=== PATIENT | female | born 1985 | race Hispanic/Latino ===

== ENCOUNTER 2018-03-05 09:12 | Outpatient (CLI) | payer BC ==
[2018-03-05 10:37] LABS: Hemoglobin 13.8 g/dL (12.0-16.0); Mean Corpuscular Hemoglobin 29.6 pg (27.0-31.0); Mean Corpuscular Volume 89.6 fL (78.0-98.0); Mean Platelet Volume 8.7 fL (7.4-10.4); Platelet Count 262 thou/uL (130-400); RBC Distribution Width 12.3 % (11.5-14.5); Red Blood Cell (RBC) Count 4.67 mill/uL (4.20-5.40); White Blood Cell (WBC) Count 7.1 thou/uL (4.8-10.8)
[2018-03-05 10:40] LABS: BHCG - Serum Negative (NEGATIVE); Pregs Control Background? CLEAR/WHITE (CLR/WHITE); Pregs Control Bar Appear? YES (CONTROL BAR)
[2018-03-05 10:44] LABS: PTT 34.8 SEC (22.9-36.1); Prothrombin Time 12.7 SEC (12.0-14.7)
[2018-03-05 10:46] LABS: Anion Gap 11 mmol/L (10-20); BUN (Urea Nitrogen) 10 mg/dL (7.0-18.7); Calc. Creatinine Clearance 0 mL/min (70-130); Calcium 9.1 mg/dL (7.8-10.44); Carbon Dioxide 27 mmol/L (22-29); Chloride 106 mmol/L (98-107); Estimated GFR-MDRD Greater than 90; Glucose 87 mg/dL (70-105); Potassium 3.8 mmol/L (3.5-5.1); Sodium 140 mmol/L (136-145)
== END 2018-03-05 09:13 | disposition home or self-care (01) ==
LOC: LABBT 09:12
PROVIDERS: ATTEND Surgery
DX: Z01.818 Encounter for other preprocedural examination (principal); M51.16 Intervertebral disc disorders with radiculopathy, lumbar region; M48.061 Spinal stenosis, lumbar region without neurogenic claudication
CPT/HCPCS: 80048; 84703; 85027; 85610; 85730; 93005; 93010

== ENCOUNTER 2018-03-08 05:55 | Day surgery (SDC) | payer BC ==
[2018-03-05 09:50] VITALS: BMI 35.5
[2018-03-08] MEDS ORDERED: Sodium Chloride 0.9% 10 ML ONE (06:31)
[2018-03-08] MEDS ORDERED: Thrombin 5000 UNITS/5 ML VIAL ONE (06:32)
[2018-03-08] MEDS ORDERED: Bacitracin Zinc Ointment 30 gm TUBE ONE (06:32)
[2018-03-08] MEDS ORDERED: CEFAZOLIN/Water 2 GM/20 ML SYRINGE ONE (06:59)
[2018-03-08] MEDS ORDERED: Midazolam HCl 2 mg/2 ml Vial ONE (06:59)
[2018-03-08] MEDS ORDERED: Fentanyl 100 MCG/2 ML VIAL ONE ×2 (07:21→10:26)
[2018-03-08] MEDS ORDERED: Promethazine HCl 25 MG/ML VIAL IM PRN ×2 (09:15→10:06)
[2018-03-08] MEDS ORDERED: HYDROmorphone 2 MG/ML VIAL SLOW IVP PRN (09:15)
[2018-03-08] MEDS ORDERED: Morphine Sulfate 2 MG/ML SYRINGE SLOW IVP PRN (09:15)
[2018-03-08] MEDS ORDERED: Promethazine HCl 25 MG/ML VIAL SLOW IVP PRN (09:15)
[2018-03-08] MEDS ORDERED: Meperidine HCl/PF 25 MG/ML VIAL SLOW IVP PRN (09:15)
[2018-03-08] MEDS ORDERED: Ondansetron HCl/PF 4 MG/2 ML Vial IVP PRN (09:15)
[2018-03-08] MEDS ORDERED: Milk Of Magnesia 30 ML UDCUP PO PRN (10:06)
[2018-03-08] MEDS ORDERED: Acetaminophen 325 MG TAB PO PRN (10:06)
[2018-03-08] MEDS ORDERED: Bisacodyl 10 MG SUPP PR PRN (10:06)
[2018-03-08] MEDS ORDERED: Mag-Al 1200 mg/1200 mg/30 ML UDCUP PO PRN (10:06)
[2018-03-08] MEDS ORDERED: Acetaminophen/Codeine 30-300mg Tablet PO PRN (10:06)
[2018-03-08] MEDS ORDERED: Fleet Enema 133 ML BOT PR PRN (10:06)
[2018-03-08] MEDS ORDERED: HYDROcodone/Acetaminophen 7.5/325 mg Tablet PO PRN (10:06)
[2018-03-08] MEDS ORDERED: HYDROmorphone 0.5 MG/0.5 ML SYRINGE ONE (10:50)
--- NOTE | 2018-03-08 11:49 | OP ---
DATE OF PROCEDURE: 03/08/2018 OR: OR #11. WOUND TYPE: Type 1 wound. SURGEON: Evangelist Parsons M.D. POWERHOUSE MECHANIC SUPERVISOR: Flash Kearney PA-C. PREPROCEDURE DIAGNOSES: L5-S1 disk extrusion with right greater than left stenosis with low back and right leg pain. POSTPROCEDURE DIAGNOSES: L5-S1 disk extrusion with right greater than left stenosis with low back an d right leg pain. PROCEDURE: 1. L5-S1 laminectomy, partial facetectomy, foraminotomy with right L5-S1 diskectomy. 2. Use of operative microscope for microdissection. DESCRIPTION OF PROCEDURE: After informed consent was obtained from the patient, the patient brought to OR 11. Proper patient pause identification was carried out. She was placed under excellent endot mary grace anesthesia and positioned prone on the OR table. All appropriate points were padded. We fortino ntified a midline chayo to allow for approach to the L5-S1 segment. This region was sterilely cleanse d, prepared, and draped. Proper patient pause and identification was carried out. The wound was the n opened with a combination of sharp, monopolar and blunt dissection, L5-S1 segment was exposed. Loc alization film confirmed our area of interest. We then performed an L5-S1 laminectomy, partial facet ectomy, foraminotomies. Microscope was brought into the field and working over the shoulder of the t raversing right S1 nerve root, the L5-S1 disk extrusion was identified and multiple disk fragments we re removed. We had excellent decompression of the right S1 and left S1 nerve roots and copious irrig ation occurred throughout and maximizing hemostasis as well. There was no spinal fluid leak. The wo und was then closed in anatomic layers following the sprinkling of vancomycin powder. The patient th en emerged from anesthesia.
[2018-03-08] MEDS: Sodium Chloride 0.9% 1,000 ML IV SCH (12:23)
[2018-03-08] MEDS: traMADol HCl 50 MG TAB PO PRN (13:49)
[2018-03-08] MEDS: tiZANidine HCl 4 MG TAB PO PRN (13:49)
[2018-03-08] MEDS ORDERED: Glycopyrrolate 0.2 MG/ML 5 ML SYRINGE ONE (15:38)
[2018-03-08] MEDS ORDERED: Ondansetron HCl/PF 4 MG/2 ML Vial ONE (15:38)
[2018-03-08] MEDS ORDERED: PROPOFOL 200 MG/20 ML VIAL ONE (15:38)
[2018-03-08] MEDS ORDERED: Lidocaine 1% PF 5 ML VIAL ONE (15:38)
[2018-03-08] MEDS ORDERED: Dexamethasone 20 MG/5 ML VIAL ONE (15:38)
[2018-03-08] MEDS: CEFAZOLIN/Water 2 GM/20 ML SYRINGE SLOW IVP SCH ×2 (17:00→17:03)
[2018-03-09] MEDS: CEFAZOLIN/Water 2 GM/20 ML SYRINGE SLOW IVP SCH (00:04)
[2018-03-09] MEDS: Sodium Chloride 0.9% 1,000 ML IV SCH (00:30)
[2018-03-09] MEDS: traMADol HCl 50 MG TAB PO PRN (00:32)
[2018-03-09] MEDS: tiZANidine HCl 4 MG TAB PO PRN (00:32)
[2018-03-09 08:09] VITALS: BP 88/55; TEMP 98
--- NOTE | 2018-03-09 10:30 | PRG ---
DATE OF SERVICE: 03/09/2018 Ms. Murdock is postoperative day 1 from L5-S1 laminectomy and right-sided diskectomy. She has had s ignificant improvement in her leg pain and has good strength and is mobilizing as tolerated. We went over both intra and postoperative issues. We will discharge her.
== END 2018-03-09 11:30 | disposition home or self-care (01) ==
LOC: SDC 05:55 → UNDOADMOB 11:39 → 3SE 11:39 → UNDODISOB 03-09 11:30 → SDC 03-09 11:30
PROVIDERS: ATTEND Surgery
PROC: 0SB20ZZ Excision of Lumbar Vertebral Disc, Open Approach (ICD-10-PCS; principal; 2018-03-09)
PROC: 01NB0ZZ Release Lumbar Nerve, Open Approach (ICD-10-PCS; principal; 2018-03-09)
DX: M51.17 Intervertebral disc disorders with radiculopathy, lumbosacral region (principal); M48.061 Spinal stenosis, lumbar region without neurogenic claudication; Z79.899 Other long term (current) drug therapy
CPT/HCPCS: 76001; 96374; A4216; J0131; J1100; J1170; J2001; J2250; J2405; J2704; J3010; J3370; J3490

== ENCOUNTER 2024-07-18 11:41 | Outpatient (CLI) | payer BC | END 2024-07-18 11:42 | disposition home or self-care (01) | LOC: BICMAMMO 11:41 | PROVIDERS: ATTEND Family Medicine | DX: Z12.31 Encounter for screening mammogram for malignant neoplasm of breast (principal); Z80.3 Family history of malignant neoplasm of breast | CPT/HCPCS: 77063; 77067 ==